=== PATIENT | female | born 2000 | race African-American/Black ===

== ENCOUNTER 2019-04-08 05:38 | Inpatient (IN) ==
[2019-04-08] MEDS ORDERED: ONDANSETRON 4 MG/2 ML VIAL IV PRN (05:50)
[2019-04-08] MEDS ORDERED: BUTORPHANOL 2 MG/ML VIAL IV PRN (05:50)
[2019-04-08] MEDS ORDERED: MEPERIDINE 50 MG/1 ML VIAL IM PRN (05:50)
[2019-04-08 06:14] LABS: Basophils % 0.1 % (0.0-0.8); Eosinophils # 0.1 10*3/uL (0.0-0.87); Eosinophils % 1.2 % (0.00-10.9); Hematocrit 36.5 VOL% (35.7-47.0); Hemoglobin 11.8 GM/DL (12.0-16.0); Immature Granulocytes % 0.7 %; Immature Granulocytes Absolute 0.05 #; Lymphocytes # 1.8 10*3/uL (1.4-4.0); Lymphocytes % 23.8 % (21.3-54.2); Mean Corpuscular HGB Conc 32.3 GM/DL (32-36); Mean Corpuscular Volume 87.3 FL (87-102); Mean Platelet Volume 10.5 FL (9.6-12.0); Neutrophils % 66.2 % (38.7-73.9); Platelet Count 247 T/CUMM (130-400); Red Blood Count 4.18 MC/CUMM (3.8-5.5); Red Cell Distribution Width 14.2 % (9.3-17.3); White Blood Count 7.6 T/CUMM (4-12)
[2019-04-08] MEDS: LACTATED RINGERS 1,000 ML IV SCH ×2 (06:14→11:01)
[2019-04-08 06:29] LABS: Albumin 2.8 G/DL (3.4-5.0); Bilirubin,Total 0.4 MG/DL (0.2-1.0); Calcium 8.7 MG/DL (8.5-10.1); Osmolality,Calculated 274.5 MOS/KG (273-304); Total Protein 6.5 G/DL (6.4-8.3)
[2019-04-08] MEDS: OXYTOCIN/LR 20 UNIT/1,000 ML BAG IV SCH ×2 (06:43→17:53)
[2019-04-08] MEDS: CLINDAMYCIN INJ 900 MG in PREMIX 1 EACH IV SCH ×2 (07:18→14:01)
[2019-04-08] MEDS ORDERED: NALOXONE 0.4 MG/ML VIAL IV PRN (09:14)
[2019-04-08] MEDS ORDERED: LACTATED RINGERS 1,000 ML IV ONE (09:14)
[2019-04-08] MEDS ORDERED: diphenhydrAMINE 50 MG/1 ML VIAL IV PRN ×2 (09:14)
[2019-04-08] MEDS ORDERED: ePHEDrine 50 MG/ML AMP IV PRN (09:14)
[2019-04-08] MEDS ORDERED: FAMOTIDINE 20 MG/2 ML VIAL IV ONE (09:14)
[2019-04-08] MEDS ORDERED: PROMETHAZINE 25 MG/1 ML VIAL IM ONE (09:14)
[2019-04-08] MEDS ORDERED: CITRIC ACID/SODIUM CITRATE 30 ML UDCUP PO ONE (09:14)
[2019-04-08] MEDS ORDERED: fentaNYL 2 MCG/ROPIV 0.2% EPID 100 ML EPIDURAL SCH (09:30)
[2019-04-08] MEDS ORDERED: LACTATED RINGERS 1,000 ML IV SCH ×2 (09:30)
[2019-04-08 10:58] LABS: Apearance,Urine CLEAR (Clear); Bilirubin,Urine Negative (Negative); Blood, Urine Negative (Negative); Glucose,Urine (UA) Negative (Negative); Ketones,Urine Negative (Negative); Nitrite,Urine Negative (Negative); Protein,Urine Negative; RBC,Urine <1 /HPF (0-4); Urine Color Straw (Yellow); Urine Specific Gravity 1.005 (1.001-1.035); Urine Urobilinogen < 2.0 EU/DL (0.2-1.0); WBC,Urine <1 /HPF (0-6)
[2019-04-08] MEDS ORDERED: METHYLERGONOVINE 0.2 MG/1 ML AMP ONE ×2 (14:41→14:44)
[2019-04-08] MEDS ORDERED: miSOPROStol 200 MCG TABLET ONE ×2 (14:41→14:43)
[2019-04-08] MEDS ORDERED: OXYTOCIN/LR 20 UNIT/1,000 ML BAG IV ONE (14:44)
[2019-04-08] MEDS ORDERED: CARBOPROST TROMETHAMINE 250 MCG/ML AMP IM ONE (14:44)
[2019-04-08 15:34] LABS: Cord Venous Blood HCO3 21.2 MMOL/L; Cord Venous Blood PCO2 32.4 MMHG; Cord Venous Blood PO2 35.5 MMHG
[2019-04-08] MEDS ORDERED: LANOLIN 50% CREAM 0.3 OZ TUBE TOP PRN (17:53)
[2019-04-08] MEDS ORDERED: DIPH/TET/ACEL PERT BOOSTER VACCINE 0.5 ML VIAL IM ONE (17:53)
[2019-04-08] MEDS ORDERED: RHO(D) IMMUNE GLOBULIN 300 MCG SYRINGE IM ONE (17:53)
[2019-04-08] MEDS ORDERED: BENZOCAINE 20%/MENTHOL 0.5% SPRAY 56 GM CAN TOP PRN (17:53)
[2019-04-08] MEDS ORDERED: ACETAMINOPHEN 325 MG TABLET PO PRN (17:53)
[2019-04-08] MEDS ORDERED: HYDROCORTISONE 2.5% RECTAL CREAM 30 GM TUBE TOP PRN (17:53)
[2019-04-08] MEDS ORDERED: WITCH HAZEL PADS 100/JAR TOP PRN (17:53)
[2019-04-08] MEDS ORDERED: BISACODYL 10 MG SUPP RECTAL PRN (17:53)
[2019-04-08] MEDS ORDERED: oxyCODONE/ACETAMINOPHEN 5-325 MG TABLET PO PRN (17:53)
[2019-04-08] MEDS ORDERED: MEASLES/MUMPS/RUBELLA VACCINE 0.5 ML VIAL SUBCUT ONE (17:53)
[2019-04-08] MEDS: IBUPROFEN 800 MG TABLET PO PRN (19:40)
[2019-04-08] MEDS: DOCUSATE SODIUM 100 MG CAPSULE PO SCH (21:21)
[2019-04-08] MEDS: POTASSIUM CHLORIDE 20 MEQ TABLET PO SCH (21:22)
[2019-04-08] MEDS: oxyCODONE/ACETAMINOPHEN 5-325 MG TABLET PO PRN (23:48)
[2019-04-09 06:18] LABS: Basophils % 0.2 % (0.0-0.8); Eosinophils # 0.2 10*3/uL (0.0-0.87); Eosinophils % 1.4 % (0.00-10.9); Hematocrit 32.3 VOL% (35.7-47.0); Hemoglobin 10.7 GM/DL (12.0-16.0); Immature Granulocytes % 0.7 %; Immature Granulocytes Absolute 0.08 #; Lymphocytes # 2.6 10*3/uL (1.4-4.0); Lymphocytes % 22.4 % (21.3-54.2); Mean Corpuscular HGB Conc 33.1 GM/DL (32-36); Mean Corpuscular Volume 86.6 FL (87-102); Mean Platelet Volume 11.1 FL (9.6-12.0); Monocytes % 9.2 % (1.7-12.7); Neutrophils % 66.1 % (38.7-73.9); Platelet Count 211 T/CUMM (130-400); Red Blood Count 3.73 MC/CUMM (3.8-5.5); Red Cell Distribution Width 14.3 % (9.3-17.3); White Blood Count 11.8 T/CUMM (4-12)
[2019-04-09] MEDS: IBUPROFEN 800 MG TABLET PO PRN ×2 (07:21→21:59)
[2019-04-09] MEDS: DOCUSATE SODIUM 100 MG CAPSULE PO SCH ×2 (07:23→20:35)
[2019-04-09] MEDS: POTASSIUM CHLORIDE 20 MEQ TABLET PO SCH ×2 (08:52→20:35)
[2019-04-09] MEDS: oxyCODONE/ACETAMINOPHEN 5-325 MG TABLET PO PRN ×2 (14:38→20:15)
[2019-04-10] MEDS: oxyCODONE/ACETAMINOPHEN 5-325 MG TABLET PO PRN (06:41)
[2019-04-10] MEDS: DOCUSATE SODIUM 100 MG CAPSULE PO SCH ×2 (10:07→10:08)
[2019-04-10] MEDS: POTASSIUM CHLORIDE 20 MEQ TABLET PO SCH (10:08)
[2019-04-10 11:36] VITALS: BP 123/81
== END 2019-04-10 13:30 | disposition home or self-care (01) | DRG 560 ==
LOC: N.LDOUT 05:38 → N.LD 05:42 → N.OB 17:56
PROVIDERS: ADMIT Obstetrics & Gynecology; ATTEND Obstetrics & Gynecology